=== PATIENT | male | born 1980 | race African-American/Black ===

== ENCOUNTER 2018-04-21 14:59 | Emergency (ER) | payer OTHER ==
[2018-04-21 15:07] VITALS: BP 130/93; PULSE 78; TEMP 98; BMI 25.1
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
[2018-04-21] MEDS ORDERED: KETOROLAC TROMETHAMINE 60 MG/2 ML VIAL IM ONE (15:56)
[2018-04-21] MEDS ORDERED: KETOROLAC TROMETHAMINE 60 MG/2 ML VIAL ONE (16:04)
--- NOTE | 2018-04-21 16:09 | PDOC ---
History of Present Illness - General Chief Complaint: Back Pain Stated Complaint: BACK PAIN Time Seen by Provider: 04/21/18 15:05 - History of Present Illness Initial Comments: 38-year-old male without comorbidities presents for evaluation of atraumatic onset of lower back pain. He states he was picking something up at work today and felt a twinge in his back and throughout the day slowly got worse. He has no radicular symptoms or loss of bowel or bladder function. 04/21/18 16:05 Past History - Past Medical History Allergies/Adverse Reactions: Allergies Allergy/AdvReac Type Severity Reaction Status Date / Time No Known Allergies Allergy Verified 04/21/18 15:07 Home Medications: Ambulatory Orders Cyclobenzaprine HCl [Flexeril 10 mg] 10 mg PO HS PRN #10 tablet 04/21/18 Ibuprofen [Motrin -] 600 mg PO TID #30 tablet 04/21/18 COPD: No - Suicide/Smoking/Psychosocial Hx Smoking History: Never smoked Review of Systems - Review of Systems Musculoskeletal: Yes: Back Pain *Physical Exam - Vital Signs Last Vital Signs Temp Pulse Resp BP Pulse Ox 98.0 F 78 18 130/93 97 04/21/18 15:05 04/21/18 15:05 04/21/18 15:05 04/21/18 15:05 04/21/18 15:05 - Physical Exam Comments: Lumbar spine skin color and temperature are within normal limits range of motion is decreased is mild to moderate right-sided and left-sided paralumbar musculature spasm. 5 out of 5 showing bilateral lower extremities negative straight leg raise test without any gross sensorimotor deficits she is neurovascular intact. 04/21/18 16:05 Medical Decision Making - Medical Decision Making Lumbar spine strain I'll treat him with Toradol and sent home with Motrin and Flexeril follow-up with spine surgery. 04/21/18 16:05 *DC/Admit/Observation/Transfer Diagnosis at time of Disposition: Back strain Qualifiers: Encounter type: initial encounter Qualified Code(s): S39.012A - Strain of muscle, fascia and tendon of lower back, initial encounter - Discharge Dispostion Disposition: HOME Condition at time of disposition: Stable Decision to Admit order: No - Referrals Referrals: Prasanna Cox MD [Primary Care Provider] - Soren Torres MD [Staff Physician] - - Patient Instructions Printed Discharge Instructions: Back Pain (Alternative Therapy), DI for Back Strain or Sprain Additional Instructions: Return to the emergency room should symptoms worsen or go unresolved. Please follow-up with spine surgery as directed in the next 1-2 days for further evaluation and treatment options. The anti-inflammatory this 3 times a day. Please take it with food and discontinue the medication positive stomach. The muscle relaxers one tablet before bedtime which will make you sleepy. - Post Discharge Activity
== END 2018-04-21 16:22 | disposition home or self-care (01) ==
LOC: JERFT 14:59
PROC: 3E0233Z Introduction of Anti-inflammatory into Muscle, Percutaneous Approach (ICD-10-PCS; principal; 2018-04-21)
DX: S39.012A Strain of muscle, fascia and tendon of lower back, initial encounter (principal); X50.0XXA Overexertion from strenuous movement or load, initial encounter; Y93.89 Activity, other specified; Y92.9 Unspecified place or not applicable
CPT/HCPCS: 99281-25

== ENCOUNTER 2021-03-16 10:46 | Emergency (ER) | payer OTHER ==
[2021-03-16 10:54] VITALS: BP 121/74; PULSE 80; TEMP 98; BMI 25.1
[2021-03-16] MEDS ORDERED: LIDOCAINE 1%/EPI 1:100000 (20 ML MULTI DOSE VIAL) ONE (12:08)
[2021-03-16] MEDS ORDERED: LIDOCAINE 1%/EPI 1:100000 (50 ML MULTI DOSE VIAL) INF ONE (12:08)
[2021-03-16] MEDS ORDERED: AMPICILLIN NA/SULBACTAM NA 3 GM in SODIUM CHLORIDE 100 ML IVPB ONE (13:00)
== END 2021-03-16 14:15 | disposition home or self-care (01) ==
LOC: JERFT 10:46
PROC: 3E033GC Introduction of Other Therapeutic Substance into Peripheral Vein, Percutaneous Approach (ICD-10-PCS; principal; 2021-03-16)
DX: S01.511A Laceration without foreign body of lip, initial encounter (principal); W26.8XXA Contact with other sharp object(s), not elsewhere classified, initial encounter
CPT/HCPCS: 99284-25